=== PATIENT | female | born 1950 | race Caucasian/White ===

== ENCOUNTER 2021-04-26 14:08 | Emergency (ER) | payer OTHER, SELFPAY ==
--- NOTE | ~2021-04-26 | XR_ITS ---
EXAMINATION: XR CHEST CLINICAL INFORMATION: Cough and malaise COMPARISON: None TECHNIQUE: 2 views of the chest were obtained. FINDINGS: There is some linear scarring seen within the lingula. No confluent parenchymal disease identified. Heart normal size. No pulmonary edema. No pneumothorax or pleural effusion. XR/XR chest 2V IMPRESSION: No acute parenchymal disease.
[2021-04-26 14:35] VITALS: BP 139/65; PULSE 72; RESP 16; TEMP 36.4; O2SAT 97; BMI 34.4
[2021-04-26 16:40] LABS: Hemoglobin 12.3 g/dl (12.0-16.0); Imm Gran Abs Auto 0.01 X10*3/uL (0.00-0.03); Imm Gran Pct Auto 0.2 % (0.0-0.4); MANUAL DIFF FLAG SCAN; Mean Corpuscular Volume 90.2 fL (80.0-98.0); PLT CLUMP 1; SCAN SMEAR FLAG 1
[2021-04-26 16:42] LABS: Basophils Percent Auto 0.7 % (0-2); Eosinophils Percent Auto 0.9 % (0-4); Hematocrit 39.7 % (37.0-47.0); Lymphocytes Absolute Auto 1.4 X10*3/uL (1.2-4.9); Lymphocytes Percent Auto 31.1 % (20-40); Mean Platelet Volume 11.6 fL (9.4-12.3); Monocytes Absolute Auto 0.6 X10*3/uL (0.1-1.2); Monocytes Percent Auto 12.7 % (2-11); Neutrophils Absolute Auto 2.5 x10*3/uL (2.0-8.3); Neutrophils Percent Auto 54.4 % (45-73); Red Cell Distribution Width 12.5 % (11.0-16.0)
[2021-04-26 16:46] LABS: Appearance Urine CLEAR; Color Urine YELLOW; Glucose Urine UA NEG (NEG); Leukocyte Esterase Urine NEG (NEG); Nitrite Urine NEG (NEG); Specific Gravity - Urine 1.025 (1.005-1.025); UACC Culture Trigger NO; Urine Blood TRACE (NEG); Urine Ketones 5 MG/DL (NEG); Urine Protein NEG (NEG-TRACE)
[2021-04-26 16:50] LABS: COVID-19 Test Positive (Negative); IDNOW Serial# 9DD0AD1C
[2021-04-26 16:54] LABS: Anion Gap 14 (12-20); Blood Urea Nitrogen 16 mg/dL (9-16); Calcium 9.1 mg/dL (8.4-10.2); Carbon Dioxide 24 mmol/L (22-29); Chloride 104 mmol/L (96-108); Creatinine Clr Calc Pharmacy 63.2; Estimated Glomerular Filt Rate 54; Glucose Random 243 mg/dL (60-115); Potassium 4.2 mmol/L (3.3-5.1); Sodium 138 mmol/L (135-145)
[2021-04-26 17:04] LABS: Bacteria Urine TRACE /LPF; Squamous Epithelial Cell Urine TRACE /LPF; UACC CULT NO; WBC Urine 0-2 /HPF (0-4)
[2021-04-26 17:08] LABS: White Blood Count 4.8 X10*3/uL (4.8-10.8)
[2021-04-26 17:09] LABS: SLIDE REVIEW VERIFIED
== END 2021-04-27 00:25 | disposition left against medical advice (07) ==
PROVIDERS: Emergency Provider Emergency Medicine
DX: U07.1 COVID-19 (principal); R42 Dizziness and giddiness; R53.1 Weakness
CPT/HCPCS: 36415; 71046; 80048; 81001; 85025; 87635; 99283